=== PATIENT | male | born 1960 | race Caucasian/White ===

== ENCOUNTER 2018-09-10 13:27 | Emergency (ER) | payer BC ==
[2018-09-10 13:50] VITALS: BP 132/77
--- NOTE | 2018-09-10 14:07 | UC ---
Skin Complaint HPI - HPI Summary HPI Summary: 57 yo male noted tick this AM not sure how long it has been attached no f/c - History of Current Complaint Chief Complaint: UCSkin Time Seen by Provider: 09/10/18 13:44 Stated Complaint: TICK Hx Obtained From: Patient Skin Exposure Onset/Duration: Hours Ago Timing: Constant Onset Severity: Mild Current Severity: Mild Pain Intensity: 0 Pain Scale Used: 0-10 Numeric Character: Redness Related History: Insect Bite/Sting - Allergy/Home Medications Allergies/Adverse Reactions: Allergies Allergy/AdvReac Type Severity Reaction Status Date / Time No Known Allergies Allergy Verified 09/10/18 13:41 Home Medications: Home Medications Calcium Polycarbophil [Fiber Tabs] 625 mg PO DAILY 09/10/18 [History Confirmed 09/10/18] Clindamycin HCl 300 mg PO TID 09/10/18 [History Confirmed 09/10/18] Levothyroxine TAB* [Synthroid TAB*] 125 mcg PO DAILY 09/10/18 [History Confirmed 09/10/18] [place]-3/Dha/Epa/Fish Oil [Fish Oil] 1 cap PO DAILY 09/10/18 [History Confirmed 09/10/18] PMH/Surg Hx/FS Hx/Imm Hx Previously Healthy: Yes Endocrine History: Thyroid Disease, Dyslipidemia - Surgical History Surgical History: Yes Surgery Procedure, Year, and Place: T&A. Double hernia repair. B/L ear sx. hx of irregular HR--cardiac eval done by PCP - Social History Alcohol Use: Daily Substance Use Type: None Smoking Status (MU): Current Every Day Smoker Type: Cigarettes Amount Used/How Often: 1 ppd Length of Time of Smoking/Using Tobacco: 47 yrs Have You Smoked in the Last Year: Yes Review of Systems All Other Systems Reviewed And Are Negative: Yes Constitutional: Positive: Negative Skin: Positive: Negative Eyes: Positive: Negative ENT: Positive: Negative Respiratory: Positive: Negative Cardiovascular: Positive: Negative Gastrointestinal: Positive: Negative Genitourinary: Positive: Negative Motor: Positive: Negative Neurovascular: Positive: Negative Musculoskeletal: Positive: Negative Neurological: Positive: Negative Psychological: Positive: Negative Physical Exam Triage Information Reviewed: Yes Appearance: Well-Appearing, No Pain Distress, Well-Nourished Vital Signs: Initial Vital Signs Temp 98 F 09/10/18 13:42 Pulse 75 04/20/19 13:42 Resp 20 09/10/18 13:42 BP 132/77 09/10/18 13:42 Pulse Ox 100 09/10/18 13:42 Vital Signs Reviewed: Yes Eyes: Positive: Conjunctiva Clear ENT: Negative: Hearing grossly normal, Nasal congestion, Nasal drainage, Trismus , Muffled voice, Hoarse voice, Dental tenderness Dental Exam: Normal Dental: Positive: Other: - no teeth Neck: Positive: Supple, Nontender, No Lymphadenopathy Respiratory: Positive: Lungs clear, Normal breath sounds, No respiratory distress, No accessory muscle use Cardiovascular: Positive: RRR, No Murmur Musculoskeletal: Positive: ROM Intact, No Edema Neurological: Positive: Alert Psychological: Positive: Normal Response To Family Skin: Positive: Other - tick engorged right chest Course/Dx - Course Course Of Treatment: tick removed form chest with TICK TWISTER - Diagnoses Provider Diagnosis: Tick bite of right side of chest wall Discharge - Sign-Out/Discharge Documenting (check all that apply): Patient Departure All imaging exams completed and their final reports reviewed: No Studies - Discharge Plan Condition: Stable Disposition: HOME Prescriptions: DOXYcycline CAP(*) [DOXYcycline 100MG CAP(*)] 200 mg PO ONCE #2 cap Patient Education Materials: Tick Bite (ED) Referrals: Aimee Stern NP [Primary Care Provider] - If Needed - Billing Disposition and Condition Condition: STABLE Disposition: Home
== END 2018-09-10 14:12 | disposition home or self-care (01) ==
LOC: UCCORT 13:27
DX: S20.361A Insect bite (nonvenomous) of right front wall of thorax, initial encounter (principal); E07.9 Disorder of thyroid, unspecified; E78.5 Hyperlipidemia, unspecified; F17.210 Nicotine dependence, cigarettes, uncomplicated; X58.XXXA Exposure to other specified factors, initial encounter
CPT/HCPCS: 99202; G0463